=== PATIENT | male | born 1990 | race Caucasian/White ===

== ENCOUNTER 2021-08-03 15:04 | Emergency (ER) | payer OTHER, SELFPAY ==
[2021-08-03 15:28] VITALS: BP 156/100; PULSE 71; RESP 16; TEMP 37; O2SAT 100; BMI 32.8
[2021-08-03 15:43] LABS: COVID19 -Nasal RAPID POSITIVE (Negative)
--- NOTE | 2021-08-03 16:15 | ED.URI ---
HPI - URI/Sore Throat <Kevin Bethea PA-C - Last Filed: 08/03/21 16:17> General Chief Complaint: Upper Respiratory Symptoms Stated Complaint: Lost of Taste and Smell Time Seen by Provider: 08/03/21 15:46 Source: patient Mode of arrival: Ambulatory History of Present Illness HPI Narrative: Karlos presents today with chief complaint loss of smell, loss of taste that started yesterday. He reports that his friend also has similar symptoms that started about the same time. He he is fully vaccinated and is otherwise healthy. He denies any significant past medical problems. He denies any chest pain, shortness of breath, or any other acute concerns or complaints at this time. Related Data Home Medications Medication Instructions Recorded Confirmed dextroamphetamine-amphetamine ER 30 mg PO DAILY 08/03/21 08/03/21 30 mg 24hr capsule,extend release (Adderall XR) Allergies Allergy/AdvReac Type Severity Reaction Status Date / Time No Known Drug Allergies Allergy Verified 08/03/21 15:30 Review of Systems <Kevin Bethea PA-C - Last Filed: 08/03/21 16:17> Review of Systems Narrative: As per HPI Patient History <Kevin Bethea PA-C - Last Filed: 08/03/21 16:17> Social History Smoking Status: Current every day smoker Smoking Status: Current every day smoker alcohol intake frequency: a few times a week Substance Use Type: does not use Exam <ANIKET Warren Last Filed: 08/03/21 16:17> Narrative Exam Narrative: Exam Narrative: Const General: cooperative, healthy appearing, comfortable, no acute distress, well developed and well groomed Nutritional Appearance: average body habitus Orientation: alert and oriented x3 HENMT Head: normal to inspection and atraumatic Ears: hearing grossly normal bilaterally Nose: external nose normal and nares normal Face and sinus: normal facial exam Neck Neck: normal visual inspection and supple Resp Effort & Inspection: normal respiratory effort, able to speak in complete sentences, no audible wheezes, not labored, no nasal flaring and no respiratory distress Neuro General: alert, oriented x3, gait normal, tone normal and moves all extremities Cognition: normal cognition Speech: speech normal Gait: normal gait Psych Appearance: grossly normal and well kempt Mental Status: mental status grossly normal Speech and Movement: speech and movement normal Mood: congruent mood Affect: normal affect Initial Vital Signs Initial Vital Signs: Vital Signs Temperature 98.6 F 08/03/21 15:28 Pulse Rate 71 08/03/21 15:28 Respiratory Rate 16 08/03/21 15:28 Blood Pressure 156/100 H 08/03/21 15:28 Pulse Oximetry 100 08/03/21 15:28 <Yumiko Carreon DO - Last Filed: 08/04/21 07:48> Initial Vital Signs Initial Vital Signs: Vital Signs Temperature 98.6 F 08/03/21 15:28 Pulse Rate 71 08/03/21 15:28 Respiratory Rate 16 08/03/21 15:28 Blood Pressure 156/100 H 08/03/21 15:28 Pulse Oximetry 100 08/03/21 15:28 Course <Kevin Bethea PA-C - Last Filed: 08/03/21 16:17> Orders Ordered: ED Orders 08/03/21 15:15 COVID19 -Nasal swab/Pre-Proc Stat Vital Signs Vital signs: Vital Signs - 8 hr 08/03/21 15:28 Temperature 98.6 F Pulse Rate 71 Respiratory Rate 16 Blood Pressure 156/100 H Pulse Oximetry 100 <DO Marcin Vitale Last Filed: 08/04/21 07:48> Orders Ordered: ED Orders 08/03/21 15:15 COVID19 -Nasal swab/Pre-Proc Stat Vital Signs Vital signs: Vital Signs - 8 hr 08/03/21 15:28 Temperature 98.6 F Pulse Rate 71 Respiratory Rate 16 Blood Pressure 156/100 H Pulse Oximetry 100 MDM - URI/Sore Throat <ANIKET Warren Last Filed: 08/03/21 16:17> Lab Data Labs: Lab Results 08/03/21 Range/Units 15:15 SARS-CoV-2 (PCR) Positive H (Negative) MDM Narrative Medical decision making narrative: Patient is well-appearing at this time and has reassuring vital signs. Recommend home isolation with following CDC protocol is for isolation at this time. Return precautions were discussed and patient verbalizes understanding and agreement to the plan. <DO Marcin Vitale Last Filed: 08/04/21 07:48> Lab Data Labs: Lab Results 08/03/21 Range/Units 15:15 SARS-CoV-2 (PCR) Positive H (Negative) Discharge Plan Departure Patient Disposition: Home Clinical Impression: COVID-19 Instructions: DI for COVID-19 (Suspected or Confirmed ) Activity Restrictions/Additional Instructions: It was very nice to meet you this afternoon. Please follow the CDC guidelines for self isolation. Please communicate with your command about whether they prefer the 5 day or 10 day isolation. If you develop chest pain, shortness of breath, or any other acute concerns or complaints please return for re-evaluation. Thank you Kevin Bethea PA-C Prescriptions: No Action dextroamphetamine-amphetamine [Adderall XR] 30 mg Capsule,Extended Release 24hr 30 mg PO DAILY 0RF Referrals: Miscellaneous,Doctor, [Primary Care Provider] - <Yumiko Carreon DO - Last Filed: 08/04/21 07:48> Cosign ED Attending Kasieature Attestation: I was immediately available in the department for consultation. Documentation has been reviewed.
== END 2021-08-03 16:20 | disposition home or self-care (01) ==
PROVIDERS: Emergency Medicine; Emergency Provider Physician Assistant
DX: U07.1 COVID-19 (principal); F17.200 Nicotine dependence, unspecified, uncomplicated
CPT/HCPCS: 87635; 99281; C9803